=== PATIENT | female | born 1975 ===

== ENCOUNTER 2016-12-30 16:37 | Emergency (ER) | payer SELFPAY ==
[2016-12-30 16:59] VITALS: BP 146/105
[2016-12-30] MEDS ORDERED: Gabapentin 300 MG Cap PO ONE (17:10)
--- NOTE | 2016-12-30 17:15 | EDM.PDOC ---
[id number]: SIATIC NERVE PROBLEM Time Seen by Provider: 12/30/16 17:09 Source of Information: Reports: Patient History Limitations: Reports: No limitations - History of Present Illness INITIAL COMMENTS - FREE TEXT/NARRATIVE: 41 yo White Female c/o Left Sciatica Flare. Pt. works on Amb[employer] . Pt. is Overweight Pt. states pain radiates to posterior left knee Symptom Onset Date: 12/28/16 Symptom Onset Time: 12:00 Timing/Duration: Reports: Day(s): Location: Reports: lower, radiating pain Quality: Reports: Ache, Burning Severity: moderate Place of Occurrence: home Worsens with: Reports: Movement Context: Reports: other (PMHx. Left Sciatica) Associated Symptoms: Reports: Denies symptoms - Related Data Allergies/ADRs: Allergies Allergy/AdvReac Type Severity Reaction Status Date / Time codeine Allergy Hives Verified 12/30/16 16:49 Penicillins Allergy Airway Verified 12/30/16 16:49 Tightness Home Meds: Home Meds Acetaminophen [Tylenol Extra Strength] 1,000 mg PO Q6HR 12/30/16 [History] Ibuprofen 400 mg PO Q6HR 12/30/16 [History] Past Medical History HEENT History: Reports: None Cardiovascular History: Reports: None Respiratory History: Reports: None Gastrointestinal History: Reports: None Genitourinary History: Reports: None CLEANERS History: Reports: None Musculoskeletal History: Reports: None Neurological History: Reports: None Psychiatric History: Reports: None Endocrine/Metabolic History: Reports: None Hematologic History: Reports: None Immunologic History: Reports: None Oncologic (Cancer) History: Reports: None Dermatologic History: Reports: None - Infectious Disease History Infectious Disease History: Reports: None - Past Surgical History Head Surgeries/Procedures: Reports: None Social & Family History - Family History Family Medical History: Noncontributory - Tobacco Use Smoking Status *Q: Never Smoker - Caffeine Use Caffeine Use: Reports: None - Recreational Drug Use Recreational Drug Use: No ED ROS GENERAL - Review of Systems Review Of Systems: See Below Constitutional: Reports: no symptoms HEENT: Reports: No symptoms Respiratory: Reports: No Symptoms Cardiovascular: Reports: No symptoms Endocrine: Reports: no symptoms GI/Abdominal: Reports: No symptoms : Reports: no symptoms Musculoskeletal: Reports: back pain (left lower back) Skin: Reports: no symptoms Neurological: Reports: Tingling (left leg to knee) Psychiatric: Reports: No symptoms Hematologic/Lymphatic: Reports: no symptoms Immunologic: Reports: no symptoms ED EXAM,LOWER BACK PAIN/INJURY - Physical Exam Exam: See Below Exam Limited By: No limitations General Appearance: alert, no apparent distress, obese Eye Exam: bilateral eye: PERRL Ears: normal external exam Nose: normal inspection Throat/Mouth: Normal inspection Head: atraumatic Neck: normal inspection Respiratory/Chest: no respiratory distress Cardiovascular: normal peripheral pulses GI/Abdominal: normal bowel sounds Back Exam: normal inspection, full range of motion, other (tenderness to Left lower back area at S.I. joint) Extremities: normal inspection, normal range of motion Neurological: alert, normal mood/affect, normal dorsiflexion, CN II-XII intact, normal plantar flexion, other (tingling down left leg to left posterior knee) Psychiatric: normal affect Skin Exam: Warm, Dry, Intact Lymphatic: no adenopathy Course - Vital Signs Last Recorded V/S: Last Vital Signs Temp 36.2 C 12/30/16 16:54 Pulse 114 H 12/30/16 16:54 Resp 20 12/30/16 16:54 BP 146/105 H 12/30/16 16:54 Pulse Ox 96 12/30/16 16:54 - Orders/Labs/Meds Meds: Medications Discontinued Medications Generic Name Dose Route Start Last Admin Trade Name Manjit PRN Reason Stop Dose Admin Gabapentin 300 mg 12/30/16 17:10 Neurontin PO 12/30/16 17:11 ONETIME ONE Departure - Departure Time of Disposition: 18:00 (Pt. Left AMA during Code Blue) Disposition: Against Medical Advice 07 Condition: good Clinical Impression: Sciatica of left side Instructions: Back Pain, Adult, [id number] Referrals: PCP,Not In Area [Primary Care Provider] - Forms: ED Department Discharge Additional Instructions: F/U w/ PCP
== END 2016-12-30 18:00 | disposition left against medical advice (07) ==
LOC: DL.ED 16:37
DX: M54.32 Sciatica, left side (principal); Z88.0 Allergy status to penicillin; Z88.5 Allergy status to narcotic agent
CPT/HCPCS: 99282; 99283